=== PATIENT | female | born 1970 | race Caucasian/White ===

== ENCOUNTER → 2020-07-09 | Day surgery (SDC) | payer OTHER ==
[~2020-07-09] VITALS: Ht 165.1 cm; Wt 79.4 kg
[~2020-07-09] MED LIST: ADDERALL 20 MG20 MG PO; BACTRIM DS TAB1 EACH PO; BUSPIRONE HCL7.5 MG PO; DULOXETINE HCL60 MG PO; LINZESS290 MCG PO; LYRICA225 MG PO; METOPROLOL SUCC50 MG PO; OMEPRAZOLE40 MG PO
[2020-07-09 09:27] LABS: HCT 41.6 % (37.0-47.0); HGB 14.1 g/dl (12.5-16.0); MCH 31.4 pg (25.0-31.0); MCHC 33.9 g/dL (32.0-36.0); MCV 92.7 fL (78.0-100.0); MPV 9.8 fL (6.0-9.5); RBC 4.49 M/uL (4.20-5.40); RDW 12.4 % (11.5-14.0); WBC 5.2 K/uL (4.0-10.5)
[2020-07-09 09:56] LABS: ALBUMIN 3.8 g/dL (3.4-5.0); BILIRUBIN - TOTAL 0.6 mg/dL (0.2-1.0); CREATININE 0.71 mg/dL (0.51-0.95); GLOBULIN (CALCULATION) 4.1 g/dL; POTASSIUM 3.5 mmol/L (3.5-5.1); TOTAL PROTEIN 7.9 g/dL (6.4-8.2)
== END | disposition home or self-care (01) ==
LOC: FAS 08:33
PROVIDERS: Surgery
DX: Z12.11 Encounter for screening for malignant neoplasm of colon (principal); D12.2 Benign neoplasm of ascending colon; D12.5 Benign neoplasm of sigmoid colon; K31.89 Other diseases of stomach and duodenum; R13.10 Dysphagia, unspecified; K21.9 Gastro-esophageal reflux disease without esophagitis; G43.909 Migraine, unspecified, not intractable, without status migrainosus; M81.0 Age-related osteoporosis without current pathological fracture; M79.7 Fibromyalgia; Z87.891 Personal history of nicotine dependence; Z80.0 Family history of malignant neoplasm of digestive organs; Z79.899 Other long term (current) drug therapy
CPT/HCPCS: 36415; 80053; J2704; J7120